=== PATIENT | male | born 1950 | race Caucasian/White ===

== ENCOUNTER 2016-10-18 07:24 | Emergency (ER) | payer OTHER ==
[~2016-10-18] VITALS: Ht 177.8 cm; Wt 102.0 kg
[2016-10-18 08:28] LABS: MCH 28.4 PG (29.0-34.0); MCHC 32.4 G/DL (30.0-36.0); MCV 87.8 FL (86-99); MEAN PLAT.VOLUME 10.2 uM^3 (9.0-12.4); PLATELET COUNT 194 K/uL (156-360); RBC DIS.WIDTH-CV 12.1 % (11.8-14.6); RBC DIS.WIDTH-SD 38.9 % (39-53); RED BLOOD COUNT 5.24 M/uL (4.00-5.50); WHITE BLOOD COUNT 4.6 K/uL (4.1-10.2)
[2016-10-18 08:41] LABS: CHLORIDE 106 mEq/L (99-109); POTASSIUM 3.5 mEq/L (3.7-5.4); SODIUM 139 mEq/L (136-147)
[2016-10-18 08:43] LABS: GLUCOSE 261 mg/dL (70-99)
[2016-10-18 08:44] LABS: ANION GAP 12 MEQ/L (2-14)
[2016-10-18 08:47] LABS: GFR ESTIMATE (CALCULATED) > 59 mL/min/
[2016-10-18 08:48] LABS: UREA NITROGEN (BUN) 10 mg/dL (9-23)
[2016-10-18 10:07] LABS: ADD MIUA? YES; BILIRUBIN NEGATIVE; BLOOD MODERATE; COLOR YELLOW ((YELLOW)); GLUCOSE (STRIP) 150; KETONES NEGATIVE; LEUKOCYTES NEGATIVE; NITRITE NEGATIVE; PROTEIN (STRIP) 30; SPECIFIC GRAVITY 1.026 (1.000-1.030); UROBILINOGEN 0.2 MG/DL (0.2-1.0)
[2016-10-18 10:23] LABS: BACTERIA NONE SEEN /HPF; EPITHELIAL CELLS NONE SEEN /HPF; HYALINE CASTS 0-5 /LPF; MUCUS 1+ /LPF; UCUL ADDED? NO
[2016-10-18] MEDS ORDERED: ZOFRAN ODT4 MG PO (10:56)
[2016-10-18] MEDS ORDERED: FLOMAX0.4 MG PO (10:56)
[2016-10-18] MEDS ORDERED: PERCOCET 5/31 TABLET PO (11:00)
[2016-10-18 11:32] VITALS: BP 128/80
== END 2016-10-18 11:34 | disposition home or self-care (01) ==
LOC: EME 07:24
PROVIDERS: Nurse Practitioner Family
DX: N20.0 Calculus of kidney (principal); E11.9 Type 2 diabetes mellitus without complications; I10 Essential (primary) hypertension; E78.5 Hyperlipidemia, unspecified; K21.9 Gastro-esophageal reflux disease without esophagitis; F32.9 Major depressive disorder, single episode, unspecified; F41.9 Anxiety disorder, unspecified
CPT/HCPCS: 74177; 80048; 81003; 85027; 99281; 99285; J2405; J3010; J7030

== ENCOUNTER 2016-10-23 10:36 | Emergency (ER) | payer OTHER ==
[~2016-10-23] VITALS: Ht 177.8 cm; Wt 102.0 kg
[~2016-10-23 10:36] MED LIST: FLOMAX0.4 MG PO; PERCOCET 5/31 TABLET PO; ZOFRAN ODT4 MG PO
[2016-10-23 12:05] LABS: HEMATOCRIT 41.8 % (38.0-50.0); MCHC 32.5 G/DL (30.0-36.0); MCV 86.2 FL (86-99); MEAN PLAT.VOLUME 10.6 uM^3 (9.0-12.4); PLATELET COUNT 157 K/uL (156-360); RBC DIS.WIDTH-CV 12.1 % (11.8-14.6); RBC DIS.WIDTH-SD 38.5 % (39-53); RED BLOOD COUNT 4.85 M/uL (4.00-5.50); WHITE BLOOD COUNT 4.3 K/uL (4.1-10.2)
[2016-10-23 12:16] LABS: CHLORIDE 102 mEq/L (99-109); POTASSIUM 3.3 mEq/L (3.7-5.4); SODIUM 139 mEq/L (136-147)
[2016-10-23 12:18] LABS: GLUCOSE 174 mg/dL (70-99)
[2016-10-23 12:19] LABS: ANION GAP 11 MEQ/L (2-14)
[2016-10-23 12:22] LABS: GFR ESTIMATE (CALCULATED) > 59 mL/min/
[2016-10-23 12:23] LABS: UREA NITROGEN (BUN) 14 mg/dL (9-23)
[2016-10-23] MEDS ORDERED: ZITHROMAX Z-PA250 MG PO (13:20)
[2016-10-23] MEDS ORDERED: TESSALON200 MG PO (13:20)
[2016-10-23 13:41] VITALS: BP 131/71
== END 2016-10-23 13:42 | disposition home or self-care (01) ==
LOC: EME 10:36
PROVIDERS: Nurse Practitioner Family
DX: S00.83XA Contusion of other part of head, initial encounter (principal); S00.81XA Abrasion of other part of head, initial encounter; W19.XXXA Unspecified fall, initial encounter; R55 Syncope and collapse; J20.9 Acute bronchitis, unspecified; J30.2 Other seasonal allergic rhinitis; R73.9 Hyperglycemia, unspecified; H53.8 Other visual disturbances; Z87.442 Personal history of urinary calculi; Z88.5 Allergy status to narcotic agent
CPT/HCPCS: 70450; 71020; 80048; 85027; 99281; 99284